=== PATIENT | male | born 1965 | race Caucasian/White ===

== ENCOUNTER 2017-08-07 12:45 | Emergency (ER) | payer MEDICAID ==
[~2017-08-07] VITALS: Ht 172.7 cm; Wt 74.8 kg
--- NOTE | 2017-08-07 12:50 | NUR ---
Attempted to trige pt, pt in restroom in ER lobby.
--- NOTE | 2017-08-07 13:50 | NUR ---
VIVIANA ELENA AT THE BEDSIDE.
[2017-08-07 14:24] LABS: BASOPHILS % (AUTO) 0.6 % (0.0-2.0); EOSINOPHILS # (AUTO) 0.1 K/uL (0.0-0.7); EOSINOPHILS % (AUTO) 2.3 % (0.0-7.0); HEMATOCRIT 43.3 % (40-50); HEMOGLOBIN 14.9 G/DL (14.0-18.0); LYMPHOCYTES # (AUTO) 1.4 K/UL (0.8-4.8); LYMPHOCYTES % (AUTO) 29.4 % (20.5-51.5); MEAN CORPUSCULAR HEMOGLOBIN 34.9 UUG (27.0-31.0); MEAN CORPUSCULAR HGB CONC 34 g/dL (32.0-37.0); MEAN CORPUSCULAR VOLUME 101.7 FL (82.0-92.0); MONOCYTES # (AUTO) 0.6 K/UL (0.1-1.30); MONOCYTES % (AUTO) 12.3 % (0.0-11.0); NEUTROPHILS # (AUTO) 2.7 K/UL (1.8-8.9); NEUTROPHILS % (AUTO) 55.4 % (38.5-71.5); PLATELET COUNT (AUTO) 147 K/UL (150-450); RED BLOOD CELL COUNT(AUTO) 4.26 MIL/UL (4.7-6.1); WHITE BLOOD COUNT (AUTO) 4.8 K/UL (4.0-11.2)
[2017-08-07 14:32] LABS: CREATININE 0.9 mg/dL (0.6-1.3); POTASSIUM 3.6 mmol/L (3.5-5.1)
[2017-08-07 14:37] LABS: BILIRUBIN,TOTAL 0.6 mg/dL (0.2-1.0); TOTAL PROTEIN, SERUM 7.8 g/dL (6.4-8.2)
--- NOTE | 2017-08-07 17:34 | NUR ---
PT OUT OF ER FOR CT.
--- NOTE | 2017-08-07 17:49 | NUR ---
Pt back from ct, states no nausea anymore and feels better now. provided dinner.
--- NOTE | 2017-08-07 18:54 | NUR ---
PT CALLED BROTHER TO PICK HIM UP, DR CRUZ PREPARED DISCHARGE PAPERWORK TO BE GIVEN TO PT'S FAMILY.
[2017-08-07 19:30] LABS: *BILIRUBIN,URIN NEGATIVE (NEGATIVE); *BLOOD, URINE NEGATIVE (NEGATIVE); *CLARITY,URINE CLEAR (CLEAR); *COLOR,URINE YELLOW (YELLOW); *KETONES,URINE 1+ (NEGATIVE); *PROTEIN,URINE TRACE (NEGATIVE); *UROBILINOGEN,URINE 0.2 E.U./dl (NORMAL); LEUKOCYTE ESTERASE ,URINE NEGATIVE (NEGATIVE); NITRITE, URINE NEGATIVE (NEGATIVE); UGLUCOSE NEGATIVE (NEGATIVE)
[2017-08-07 19:45] LABS: MUCUS,URINE MANY /LPF (0-FEW)
--- NOTE | 2017-08-07 19:45 | NUR ---
IV removed. Catheter intact and site benign. Pressure and 4x4 gauze applied to site. No bleeding noted.
--- NOTE | 2017-08-07 19:53 | NUR ---
Patient discharged to home in stable conditon WITH SISTER IN LAW TYO TAKE PATIENT HOME. Written and verbal after care instructions given. Patient verbalizes understanding of instructions. WALKED OUT OF ER WITH STEADY GAIT. NO DISTRESS NOTED
[2017-08-07 19:54] VITALS: BP 130/78
== END 2017-08-07 19:57 | disposition home or self-care (01) ==
LOC: ER 12:45
DX: F10.10 Alcohol abuse, uncomplicated (principal); K21.9 Gastro-esophageal reflux disease without esophagitis
CPT/HCPCS: 36415; 70030-TC; 71010; 85025; 85610; 93005; A4663; C9113; G0480; J2405; J3490; J7030